=== PATIENT | female | born 1995 | race Caucasian/White ===

== ENCOUNTER → 2016-12-22 | Day surgery (SDC) | payer OTHER ==
[~2016-12-22] VITALS: Ht 162.6 cm; Wt 81.6 kg
[~2016-12-22] MED LIST: BUPIVACAINE HCL 0.25% 30 ML VIAL As Ordered ONE; GLYCOPYRROLATE INJ 0.2 MG/ML 2 ML VIAL As Ordered ONE; KETOROLAC 60 MG/2 ML VIAL (J1885) As Ordered ONE; LIDOCAINE 2% INJ 100 MG/5 ML SDV (FOR ANES.) As Ordered ONE; LR 1,000 ML IV SCH; METHYLENE BLUE 1% 10 ML VIAL (Q9968) As Ordered ONE; METOCLOPRAMIDE INJ 10MG/2ML VIAL (J2765) As Ordered ONE; MIDAZOLAM INJ 2 MG/2 ML VIAL (J2250) As Ordered ONE; NEOSTIGMINE 1MG/ML 5 ML SYRINGE (J2710) As Ordered ONE; ONDANSETRON 4MG/2ML VIAL (J2405) As Ordered ONE; ONDANSETRON 4MG/2ML VIAL (J2405) IV PRN; PERCOCET 5MG/325MG TAB PO ONE; PROPOFOL 200 MG/20 ML VIAL As Ordered ONE; ROCURONIUM BROMIDE 50 MG/5 ML VIAL As Ordered ONE; [UNRECOGNIZED DRUG - CODE] PO; birth control PO; dexameTHASONE 4 MG/ML 1ML VIAL (J1100) As Ordered ONE; fentaNYL 100 MCG/2 ML INJECTION (J3010) IV PRN; fentaNYL 250 MCG/5 ML INJECTION (J3010) As Ordered ONE
[2016-12-22 09:24] LABS: CONTROL LINE HCG INT CTR LINE PRESENT
[2016-12-22 14:05] VITALS: BP 111/65
--- NOTE | 2016-12-23 10:47 | RO ---
DATE OF PROCEDURE: 12/22/2016 PREOPERATIVE DIAGNOSES: Dyspareunia and pelvic pain. POSTOPERATIVE DIAGNOSES: Dyspareunia and pelvic pain. OPERATION PERFORMED: Diagnostic laparoscopy with chromopertubation and Mirena intrauterine device placement. SURGEON: Maryellen Vergara MD HOME IMPROVEMENT CONTRACTOR: Davey Negron MD ANESTHESIA: General endotracheal anesthesia. CLINICAL SERVICE: SECURITY FLEX OFFICER. INDICATION FOR OPERATION: Gauri is a 21-year-old, (G) 0 with ongoing pelvic pain and dyspareunia who had failed a trial of oral contraceptive pills as well as Lupron and desired definitive diagnosis/possible treatment. MATERIAL FORWARDED TO THE LABORATORY: None. DESCRIPTION OF FINDINGS: Exam under anesthesia revealed anteverted uterus, normal size, shape and contour. No adnexal masses. Laparoscopic findings included normal uterus, fallopian tubes, ovaries, appendix, liver edge. Chromopertubation was also performed with dye emanating from both fallopian tubes. Uterus sounded to 7 cm and Mirena intrauterine device (IUD) was placed without incident. INFECTION CLASSIFICATION: II. ESTIMATED BLOOD LOSS: 5 mL. She received 1200 mL of lactated Ringer's. URINE OUTPUT: 800 mL of clear yellow urine. DESCRIPTION OF OPERATION: After obtaining informed consent, Gauri was taken to the operating room. General endotracheal anesthesia was established and she was placed in low lithotomy position. Exam under anesthesia was performed with findings as noted above. She was prepped and draped in usual sterile fashion. Placed in Trendelenburg position. Otoole catheter was placed. [place] speculum was placed in the vagina and visualization of the cervix was obtained. Anterior lip of the cervix was grasped with a single-tooth tenaculum and the cervix was sequentially dilated using Hanks dilators. Uterus sounded to 7 cm. The JAYNA manipulator was placed through the cervix and the tenaculum was removed. Tenaculum site hemostasis observed. [place] speculum was removed. She was taken out of Trendelenburg position and a 5 mm incision was made in the infraumbilical fold beneath the subcutaneous tissue. Radha clamp was used to spread the subcutaneous tissue. Lower abdominal wall was manually grabbed and lifted up, and an Optiview trocar was placed at the 90 degree angle. The laparoscope was advanced through the port and intraabdominal placement was confirmed. Continuous slow carbon dioxide began established began to establish pneumoperitoneum at 15 mmHg pressure. At that point, we performed our thorough pelvic and abdominal survey beginning at the anterior cul-de-sac and anterior portion of the uterus, which were normal in appearance. Left and right fallopian tubes, round ligaments, broad ligaments, uterosacral ligaments and ovaries were observed with normal appearance. Posterior cul-de-sac was observed to be normal. Survey of the upper abdomen revealed a normal appendix and normal liver edge. There was absolutely no evidence of any endometriosis or pelvic adhesions. We then performed chromopertubation with methylene blue injected through the JAYNA manipulator and the dye easily emanated from both of the fallopian tubes indicating that they were both patent. The infraumbilical port was removed after releasing all of the pneumoperitoneum. The incision was approximately with #4-0 Monocryl and Dermabond. At that point, we removed the manipulator from the cervix and then placed a Mirena IUD in routine fashion cutting the strings to 4 cm in length. All instruments were removed from the vagina. There was hemostasis of the tenaculum site. Sponge, lap and needle counts were correct times two. She tolerated the procedure well and was awakened from general anesthesia, taken to recovery room in good condition. DAVY
== END | disposition home or self-care (01) ==
LOC: M SDC 08:43
PROVIDERS: ATTEND Obstetrics & Gynecology
DX: F52.6 Dyspareunia not due to a substance or known physiological condition (principal); R10.2 Pelvic and perineal pain; J45.909 Unspecified asthma, uncomplicated; Z79.3 Long term (current) use of hormonal contraceptives
CPT/HCPCS: 36415; 58300; 58350; 84703; 85014; 85018; 86850; 86900; 86901; J1100; J1885; J2250; J2405; J2710; J2765; J3010; J7298; Q9968